=== PATIENT | female | born 1950 | race African-American/Black ===

== ENCOUNTER 2019-12-25 07:26 | Emergency (ER) | payer MEDICARE, MEDICAID ==
[~2019-12-25] VITALS: Ht 165.1 cm; Wt 68.0 kg
[2019-12-25] MEDS ORDERED: BENA40TA9 MT (09:38)
[2019-12-25] MEDS ORDERED: HYDRALAZINE HCL 25MG TABLET PO ONE (10:15)
[2019-12-25 11:30] VITALS: BP 177/98
== END 2019-12-25 11:33 | disposition home or self-care (01) ==
LOC: ER 08:00
DX: I10 Essential (primary) hypertension (principal); Z86.73 Personal history of transient ischemic attack (TIA), and cerebral infarction without residual deficits; Z88.0 Allergy status to penicillin
CPT/HCPCS: 99283